=== PATIENT | male | born 1950 | race Caucasian/White ===

== ENCOUNTER 2020-10-20 11:14 | Inpatient (IN) | payer BC, OTHER ==
[~2020-10-20] VITALS: Ht 180.3 cm; Wt 63.7 kg
[~2020-10-20 11:14] MED LIST: HYDACE10B PO; HYDACE5 PO; METO50ER PO; NITR.4SL SL; ROSU10TA; RXHYDACE PO
[2020-10-20 12:14] LABS: BASOPHILS ABSOLUTE AUTO 0.02 K/mm3 (0.00-0.23); BASOPHILS PERCENT AUTO 0 % (0-2); EOSINOPHILS PERCENT AUTO 0 % (0-6); Hematocrit 54.8 % (37.0-53.0); IMMATURE GRAN ABSOLUTE AUTO 0.07 K/mm3 (0.00-0.10); IMMATURE GRAN PERCENT AUTO 0 % (0-1); LYMPHOCYTES PERCENT AUTO 6 % (21-46); MONOCYTES ABSOLUTE AUTO 1.63 K/mm3 (0.16-1.47); MONOCYTES PERCENT AUTO 10 % (4-13); Mean Corpuscular HGB 26.3 pg (26.0-34.0); Mean Corpuscular Volume 85 fL (80-100); Mean Platelet Volume 10.1 fL (9.1-12.4); NEUTROPHILS ABSOLUTE AUTO 14.31 K/mm3 (1.96-9.15); NEUTROPHILS PERCENT AUTO 84 % (41-73); Platelet Count 446 K/mm3 (150-400); RDW Coefficient Variation 13.2 % (11.7-14.2); RDW Standard Deviation 41.1 fL (35.1-46.3); Red Blood Cell Count 6.47 M/mm3 (4.30-5.90); White Blood Cell Count 17.13 K/mm3 (4.00-11.30)
[2020-10-20 12:27] LABS: Alanine Aminotransfer (ALT/SGP 294 U/L (12-78); Albumin, Blood 3.9 g/dL (3.4-5.0); Alk Phos 166 U/L (50-136); Anion Gap 7 mmol/L (6-16); Aspartate Aminotrans (AST/SGOT 114 U/L (12-37); Bilirubin, Total 0.8 mg/dL (0.1-1.0); Blood Urea Nitrogen 20 mg/dL (8-24); Bun/Creatinine Ratio 24.6 (12.0-20.0); CO2, Blood 27 mmol/L (21-32); Calcium, Blood 8.8 mg/dL (8.5-10.1); Chloride, Blood 104 mmol/L (98-108); Creatinine, Blood 0.81 mg/dL (0.60-1.20); Globulin, Blood 3.8 g/dL (2.2-4.0); Glomerular Filtration Rate >60 (60-); Glucose, Blood 162 mg/dL (70-99); Potassium, Blood 4.9 mmol/L (3.5-5.5); Sodium, Blood 138 mmol/L (136-145); Total Protein, Blood 7.7 g/dL (6.4-8.2); Troponin I <0.015 ng/mL (0.000-0.040)
--- NOTE | 2020-10-20 21:05 | NUR ---
PATIENT IS A NEW ADMIT FROM THE ED. ARRIVED VIA W/C. AXOX 4 AND SBA ASSIST TRANSFER TO BED. SOB WITH EXERTION ON ROOM AIR. NPO. PERSONAL BACK BRACE USED FOR SUPPORT TAKEN OFF ONCE IN BED. USED URINAL AT BEDSIDE. PATIENT ORIENTED TO ROOM AND CALL LIGHT SYSTEM. NO FAMILY PRESENT. WILL CONTINUE TO MONITOR.
--- NOTE | 2020-10-21 00:09 | NUR ---
GI CONSULT CALLED INTO DR GIOVANI CRUZ ANSWERING SERVICE ([email or web address]).
--- NOTE | 2020-10-21 04:12 | NUR ---
SHIFT SUMMARY PATIENT HAD NO ACUTE CHANGES OBSERVED. AXOX 4 AND SBA TO BR. NPO AND USES URINAL AT BEDSIDE. SOB WITH EXERTION, ON ROOM AIR. PIV REMAINS INTACT. IV ABX INFUSED. SOLU-MEDROL GIVEN PER EMAR. GI CONSULT CALLED INTO DR COSBY ANSWERING SERVICE. 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 DENIES PAIN AND N/V. COOPERATIVE WITH CARE. CALL LIGHT IN REACH. BED IN LOWEST POSITION. WILL CONTINUE TO MONITOR UNTIL DAY SHIFT NURSE ASSUMES CARE.
[2020-10-21 05:54] LABS: BASOPHILS ABSOLUTE AUTO 0.01 K/mm3 (0.00-0.23); BASOPHILS PERCENT AUTO 0 % (0-2); EOSINOPHILS PERCENT AUTO 0 % (0-6); Hematocrit 45.4 % (37.0-53.0); Hemoglobin 14.6 g/dL (13.5-17.5); IMMATURE GRAN ABSOLUTE AUTO 0.04 K/mm3 (0.00-0.10); IMMATURE GRAN PERCENT AUTO 0 % (0-1); LYMPHOCYTES ABSOLUTE AUTO 0.44 K/mm3 (0.84-5.20); LYMPHOCYTES PERCENT AUTO 4 % (21-46); MONOCYTES ABSOLUTE AUTO 0.07 K/mm3 (0.16-1.47); MONOCYTES PERCENT AUTO 1 % (4-13); Mean Corpuscular HGB 27.1 pg (26.0-34.0); Mean Corpuscular HGB Conc 32.2 g/dL (31.5-36.5); Mean Corpuscular Volume 84 fL (80-100); Mean Platelet Volume 9.7 fL (9.1-12.4); NEUTROPHILS ABSOLUTE AUTO 9.53 K/mm3 (1.96-9.15); NEUTROPHILS PERCENT AUTO 94 % (41-73); Platelet Count 316 K/mm3 (150-400); RDW Coefficient Variation 13.4 % (11.7-14.2); RDW Standard Deviation 41.2 fL (35.1-46.3); Red Blood Cell Count 5.38 M/mm3 (4.30-5.90); White Blood Cell Count 10.09 K/mm3 (4.00-11.30)
[2020-10-21 06:13] LABS: Alanine Aminotransfer (ALT/SGP 193 U/L (12-78); Albumin, Blood 3.3 g/dL (3.4-5.0); Alk Phos 127 U/L (50-136); Anion Gap 7 mmol/L (6-16); Aspartate Aminotrans (AST/SGOT 57 U/L (12-37); Bilirubin, Total 0.8 mg/dL (0.1-1.0); Blood Urea Nitrogen 17 mg/dL (8-24); Bun/Creatinine Ratio 27.2 (12.0-20.0); CO2, Blood 27 mmol/L (21-32); Calcium, Blood 7.9 mg/dL (8.5-10.1); Chloride, Blood 108 mmol/L (98-108); Creatinine, Blood 0.62 mg/dL (0.60-1.20); Globulin, Blood 3.3 g/dL (2.2-4.0); Glomerular Filtration Rate >60 (60-); Glucose, Blood 132 mg/dL (70-99); Potassium, Blood 4.3 mmol/L (3.5-5.5); Sodium, Blood 142 mmol/L (136-145); Total Protein, Blood 6.6 g/dL (6.4-8.2)
[2020-10-21 13:11] LABS: Influenza A, PCR NEGATIVE (NEGATIVE); Influenza B, PCR NEGATIVE (NEGATIVE); Resp Syncytial Virus, PCR NEGATIVE (NEGATIVE); SARS-Cov-2 (COVID-19) PCR, MMC NEGATIVE (NEGATIVE)
--- NOTE | 2020-10-21 16:32 | NUR ---
10/21/20 1632 Tommy Kelsey PATIENT DETERMINED TO BE ASA APPROPRIATE FOR PROPOFOL SEDATION PRIOR TO START OF PROCEDURE BY DR. MACK. Bite Block Placed. 3-LEAD EKG REVIEWED WITH PHYSICIAN PRIOR TO START OF PROCEDURE. Patient to ENDO 1 History, Chart, Medications and Allergies reviewed before start of procedure. MONITOR INTACT WITH CONTINUOUS PULSE OXIMETRY AND INTERMITTENT BP. O2 VIA N/C INTACT THROUGHOUT SEDATION/PROCEDURE.
--- NOTE | 2020-10-21 18:28 | NUR ---
SHIFT SUMMARY PT IS A&O AND ABLE TO MAKE NEEDS KNOWN. PT WENT TO DAY SURGERY, UPPER ENDOSCOPY WAS PREFORMED. PT IS ON ASPIRATION PRECAUTIONS UNTIL SPEECH CAN EVALUATE. PT IS RESTING IN BED, DENIES P,N,V AT THIS TIME. CALL LIGHT IS W/IN REACH. NO ACUTE CHANGES TO REPORT.
--- NOTE | 2020-10-22 03:16 | NUR ---
SHIFT SUMMARY PATIENT HAD NO ACUTE CHANGES OBSERVED. AXOX 4 AND INDEPENDENT IN ROOM WITH FWW. PIV REMAINS INTACT. IV ABX INFUSED. 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 ON ROOM AIR AND NPO. USES URINAL AT BEDSIDE. DENIES PAIN, SOB, AND N/V. VSS/AFEBRILE. COOPERATIVE WITH CARE. CALL LIGHT IN REACH. BED IN LOWEST POSITION. WILL CONTINUE TO MONITOR UNTIL DAY SHIFT NURSE ASSUMES CARE.
[2020-10-22 05:02] LABS: BASOPHILS ABSOLUTE AUTO 0.01 K/mm3 (0.00-0.23); BASOPHILS PERCENT AUTO 0 % (0-2); EOSINOPHILS PERCENT AUTO 0 % (0-6); Hemoglobin 14.7 g/dL (13.5-17.5); IMMATURE GRAN ABSOLUTE AUTO 0.03 K/mm3 (0.00-0.10); IMMATURE GRAN PERCENT AUTO 0 % (0-1); LYMPHOCYTES PERCENT AUTO 6 % (21-46); MONOCYTES PERCENT AUTO 12 % (4-13); Mean Corpuscular HGB 26.4 pg (26.0-34.0); Mean Corpuscular HGB Conc 31.3 g/dL (31.5-36.5); Mean Corpuscular Volume 85 fL (80-100); Mean Platelet Volume 9.5 fL (9.1-12.4); NEUTROPHILS ABSOLUTE AUTO 9.96 K/mm3 (1.96-9.15); NEUTROPHILS PERCENT AUTO 82 % (41-73); Platelet Count 321 K/mm3 (150-400); RDW Coefficient Variation 13.5 % (11.7-14.2); RDW Standard Deviation 42.1 fL (35.1-46.3); Red Blood Cell Count 5.56 M/mm3 (4.30-5.90)
[2020-10-22 05:23] LABS: Anion Gap 6 mmol/L (6-16); Blood Urea Nitrogen 21 mg/dL (8-24); Bun/Creatinine Ratio 31.3 (12.0-20.0); CO2, Blood 29 mmol/L (21-32); Chloride, Blood 112 mmol/L (98-108); Creatinine, Blood 0.67 mg/dL (0.60-1.20); Glomerular Filtration Rate >60 (60-); Glucose, Blood 98 mg/dL (70-99); Potassium, Blood 4.2 mmol/L (3.5-5.5); Sodium, Blood 147 mmol/L (136-145)
--- NOTE | 2020-10-22 18:12 | NUR ---
SHIFT SUMMARY PT ALERT AND ORIENTED. PT ABLE TO MAKE NEEDS KNOWN. PT HAD A MODIFIED BARIUM STUDY THIS MORNING. PT WILL CONTINUE TO BE NPO, STUDY SHOWED PT IS UNABLE TO CLEAR THIN OR THICKENED LIQUIDS. RECIEVED CALL FROM [facility] IN AFTERNOON, PT HAD RUNS OF BRADYCARDIA IN THE MID 40'S, PT WAS ASYMPTOMATIC. EVENING CHECK IN WITH [facility] REPORT SHOWED PT HAD RUNS OF BRADYCARDIA THREE TIMES THIS SHIFT ONCE IN THE MORNING, 1300'S AND JUST BEFORE 1500. SURGERY CONSULT CALLED IN TO DR TRUJILLO FOR PLACEMENT OF FEEDING TUBE. PT AND AGREABLE FOR SURGERY. CONSULT CALLED INTO ANSWERING SERVICE AT [address] TRUJILLO VISITED WITH PT TO REVIEW SURGERY AT 1725. SURGERY FOR PLACEMENT OF FEEDING TUBE SCHEDULED FOR 10/23/20. DR. TRUJILLO SAID TO HOLD TOMORROWS LOVENOX SHOT. RECEIVED CLINIMAX ORDER FOR PT, WILL START ONCE EVENING ANTIBIOTIC IS FINISHED. PT CURENTLY IN ROOM RESTING, CALL LIGHT W/IN REACH. WILL CONTINUE TO MONITOR UNTIL SHIFT CHANGE.
[2020-10-23 05:09] LABS: BASOPHILS ABSOLUTE AUTO 0.01 K/mm3 (0.00-0.23); BASOPHILS PERCENT AUTO 0 % (0-2); EOSINOPHILS PERCENT AUTO 0 % (0-6); Hematocrit 44.9 % (37.0-53.0); Hemoglobin 14.1 g/dL (13.5-17.5); IMMATURE GRAN ABSOLUTE AUTO 0.04 K/mm3 (0.00-0.10); IMMATURE GRAN PERCENT AUTO 1 % (0-1); LYMPHOCYTES ABSOLUTE AUTO 0.76 K/mm3 (0.84-5.20); LYMPHOCYTES PERCENT AUTO 9 % (21-46); MONOCYTES ABSOLUTE AUTO 0.94 K/mm3 (0.16-1.47); MONOCYTES PERCENT AUTO 11 % (4-13); Mean Corpuscular HGB 26.6 pg (26.0-34.0); Mean Corpuscular HGB Conc 31.4 g/dL (31.5-36.5); Mean Corpuscular Volume 85 fL (80-100); Mean Platelet Volume 9.6 fL (9.1-12.4); NEUTROPHILS ABSOLUTE AUTO 6.69 K/mm3 (1.96-9.15); NEUTROPHILS PERCENT AUTO 79 % (41-73); Platelet Count 290 K/mm3 (150-400); RDW Coefficient Variation 13.6 % (11.7-14.2); RDW Standard Deviation 42.5 fL (35.1-46.3); White Blood Cell Count 8.44 K/mm3 (4.00-11.30)
[2020-10-23 05:36] LABS: Alanine Aminotransfer (ALT/SGP 127 U/L (12-78); Albumin, Blood 3.2 g/dL (3.4-5.0); Albumin/Globulin Ratio 1.1 (0.8-1.8); Alk Phos 112 U/L (50-136); Anion Gap 4 mmol/L (6-16); Aspartate Aminotrans (AST/SGOT 50 U/L (12-37); Bilirubin, Total 0.9 mg/dL (0.1-1.0); Blood Urea Nitrogen 20 mg/dL (8-24); Bun/Creatinine Ratio 35.4 (12.0-20.0); CO2, Blood 27 mmol/L (21-32); Calcium, Blood 7.9 mg/dL (8.5-10.1); Chloride, Blood 110 mmol/L (98-108); Creatinine, Blood 0.57 mg/dL (0.60-1.20); Glomerular Filtration Rate >60 (60-); Glucose, Blood 110 mg/dL (70-99); Potassium, Blood 3.9 mmol/L (3.5-5.5); Sodium, Blood 141 mmol/L (136-145); Total Protein, Blood 6.2 g/dL (6.4-8.2)
--- NOTE | 2020-10-23 06:15 | NUR ---
PT IS A/O PLEASANT, NPO AT THIS TIME, PENDING PEG TUBE PLACEMENT WITH DR POSADAS TODAY. LOVENOX HELD THIS SHIFT. PT SUCTIONS SELF, CLINIX RUNNING AT THIS TIME. TELE MONITOR HAS OCCASIONS OF BRADYCARDIA AT TIMES.
[2020-10-23 08:09] LABS: HBSAG SCREEN Negative (Negative); HEP B CORE AB, TOT Negative (Negative); HEP C VIRUS AB <0.1 (0.0-0.9)
[2020-10-23 09:09] LABS: HBSAG SCREEN Negative (Negative); HEP A AB, IGM Negative (Negative); HEP B CORE AB, IGM Negative (Negative); HEP C VIRUS AB <0.1 (0.0-0.9)
--- NOTE | 2020-10-23 13:21 | NUR ---
10/23/20 1321 Jose Lawrence History, Chart, Medications and Allergies reviewed before start of procedure.MONITOR INTACT WITH CONTINUOUS PULSE OXIMETRY AND INTERMITTENT BP. 3-LEAD EKG REVIEWED WITH PHYSICIAN PRIOR TO START OF PROCEDURE. O2 VIA N/C INTACT THROUGHOUT SEDATION/PROCEDURE. Bite Block Placed. See Anesthesia record.
--- NOTE | 2020-10-23 13:33 | NUR ---
PT TRANSFERED TO [facility] FROM FLOOR VIA GURNY. Surgical site prepped with 2% Chlorhexidine cloth wipe. History, Chart, Medications and Allergies reviewed before start of procedure. Lungs clear T/O to Auscultation. Patient confirms NPO status and agrees with scheduled surgery. Pre-Op teaching done. Pt verbalizes understanding.
--- NOTE | 2020-10-23 18:39 | NUR ---
SHIFT SUMMARY MARLEE DENIED PAIN THIS SHIFT. STRICT NPO. HAD PEG PLACED, VSS POST PROCEDURE. SBA TO BR. DRESSING AROUND PEG C/D/I. DAUGHTER VISITED. HR DOWN TO 40S AND UP TO 90S, LABILE. PT ASYMPTOMATIC. DR ALCANTAR AWARE. CALL LIGHT IN REACH, [facility]
[2020-10-24 05:24] LABS: BASOPHILS ABSOLUTE AUTO 0.01 K/mm3 (0.00-0.23); BASOPHILS PERCENT AUTO 0 % (0-2); EOSINOPHILS PERCENT AUTO 0 % (0-6); Hematocrit 45.2 % (37.0-53.0); Hemoglobin 14.5 g/dL (13.5-17.5); IMMATURE GRAN ABSOLUTE AUTO 0.03 K/mm3 (0.00-0.10); IMMATURE GRAN PERCENT AUTO 0 % (0-1); LYMPHOCYTES ABSOLUTE AUTO 0.64 K/mm3 (0.84-5.20); LYMPHOCYTES PERCENT AUTO 8 % (21-46); MONOCYTES ABSOLUTE AUTO 0.82 K/mm3 (0.16-1.47); MONOCYTES PERCENT AUTO 10 % (4-13); Mean Corpuscular HGB 27.2 pg (26.0-34.0); Mean Corpuscular HGB Conc 32.1 g/dL (31.5-36.5); Mean Corpuscular Volume 85 fL (80-100); Mean Platelet Volume 9.6 fL (9.1-12.4); NEUTROPHILS ABSOLUTE AUTO 6.64 K/mm3 (1.96-9.15); NEUTROPHILS PERCENT AUTO 82 % (41-73); Platelet Count 237 K/mm3 (150-400); RDW Coefficient Variation 13.5 % (11.7-14.2); RDW Standard Deviation 41.8 fL (35.1-46.3); Red Blood Cell Count 5.33 M/mm3 (4.30-5.90); White Blood Cell Count 8.14 K/mm3 (4.00-11.30)
--- NOTE | 2020-10-24 05:49 | NUR ---
PT IS A/O, USES RESTROOM, NPO DUE TO INABILITY TO SWALLOW. PEG TUBE PLACED YESTERDAY AFTERNOON, SITE DRESSING CDI. TELE MONITOR HAS OCCASIONAL BRADYCARDIC EPISODES.
[2020-10-24 06:03] LABS: Anion Gap 6 mmol/L (6-16); Blood Urea Nitrogen 17 mg/dL (8-24); Bun/Creatinine Ratio 32.5 (12.0-20.0); CO2, Blood 24 mmol/L (21-32); Chloride, Blood 110 mmol/L (98-108); Creatinine, Blood 0.52 mg/dL (0.60-1.20); Glomerular Filtration Rate >60 (60-); Glucose, Blood 105 mg/dL (70-99); Magnesium, Blood 2.5 mg/dL (1.6-2.4); Phosphorus, Blood 1.5 mg/dL (2.5-4.9); Potassium, Blood 3.9 mmol/L (3.5-5.5); Sodium, Blood 140 mmol/L (136-145)
--- NOTE | 2020-10-24 18:40 | NUR ---
SHIFT SUMMARY MARLEE DENIED PAIN THIS SHIFT. UP TO CHAIR AND BR WITH SBA DUE TO LINES. TOLERATED TUBE FEED WELL, FIRST 8 HOURS OF SHIFT HE WAS AT 25ML/HR TF, ADVANCED TO 40ML/HR AT 4PM, RESIDUALS ONLY AT 20CC, NO NAUSEA/DISTENSION. PEG TUBE C/D/I. CONTINENT IN URINAL. CALL LIGHT IN REACH, WCTM
--- NOTE | 2020-10-24 21:20 | NUR ---
CLINIMIX COMPLETED W/IV SL. Q4H SCHEDULED WATER FLUSHES COMMENCED VIA PEG TUBE PER ORDERS AND RN REPORT INSTRUCTIONS. RESIDUAL WAS 25 MLS AND PT TOLERATING CONTINUOUS TUBE FEEDS AT THIS TIME. RATE DUE TO BE INCREASED AT 0000.
--- NOTE | 2020-10-24 22:43 | NUR ---
CLINIMIX COMPLETED W/IV SL. Q4H SCHEDULED WATER FLUSHES COMMENCED VIA PEG TUBE PER ORDERS AND RN REPORT INSTRUCTIONS. RESIDUAL WAS 25 MLS AT PT TOLERATING CONTINUOUS TUBE FEEDS AT THIS TIME. RATE DUE TO BE INCREASED AT 0000.
[2020-10-25 05:06] LABS: BASOPHILS ABSOLUTE AUTO 0.01 K/mm3 (0.00-0.23); BASOPHILS PERCENT AUTO 0 % (0-2); EOSINOPHILS PERCENT AUTO 0 % (0-6); Hematocrit 46.4 % (37.0-53.0); Hemoglobin 14.8 g/dL (13.5-17.5); IMMATURE GRAN ABSOLUTE AUTO 0.05 K/mm3 (0.00-0.10); IMMATURE GRAN PERCENT AUTO 1 % (0-1); LYMPHOCYTES ABSOLUTE AUTO 0.72 K/mm3 (0.84-5.20); LYMPHOCYTES PERCENT AUTO 8 % (21-46); MONOCYTES ABSOLUTE AUTO 0.96 K/mm3 (0.16-1.47); MONOCYTES PERCENT AUTO 10 % (4-13); Mean Corpuscular HGB 26.8 pg (26.0-34.0); Mean Corpuscular HGB Conc 31.9 g/dL (31.5-36.5); Mean Corpuscular Volume 84 fL (80-100); NEUTROPHILS ABSOLUTE AUTO 7.59 K/mm3 (1.96-9.15); NEUTROPHILS PERCENT AUTO 81 % (41-73); Platelet Count 242 K/mm3 (150-400); RDW Coefficient Variation 13.5 % (11.7-14.2); RDW Standard Deviation 41.4 fL (35.1-46.3); Red Blood Cell Count 5.53 M/mm3 (4.30-5.90); White Blood Cell Count 9.33 K/mm3 (4.00-11.30)
--- NOTE | 2020-10-25 05:30 | NUR ---
SUMMARY: A/OX4, SPECIFIES NEEDS AND IS SBA OOB. HE RARELY CALLS FOR ASSIST BUT HAS DENIED NEEDS OUTSIDE OF POSITIONAL BACK PAIN THAT WAS RELIEVED W/TURNING AND FENTANYL 25MCG IV PRN. HE REMAINS NPO FOR ASPIRATION PNM W/IV ABX RECIEVED T/O NOCTE. CLINIMIX BAG COMPLETED AND WAS SL PER ORDERS. PEG TUBE WAS RECENTLY PLACED AND PT HAS TOLERATED CONT.FEEDS WELL. RATE INCREASED TO GOAL OF 55 ML/HR AND Q4H WATER FLUSHES STARTED UPON D/C OF CLINIMIX, MINIMAL RESIDUALS NOTED OF APPROX 10-30 MLS. BT'S (+) X4 QUADS AND PT DENIED NAUSEA AND ABDO DISTENSION/PRESSURE. BOLUS FEEDINGS PLANNED TO START THIS AM. PT USED URINAL IN BED AND CONT'S W/O DOCUMENTED BM SINCE 10/18/20. BOWEL MEDS RX'D AND WILL BE COMMENCED ON DAY SHIFT. NO ACUTE CHANGES, VSS/AFEBRILE. WCTM/REPORT TO DAY RN.
[2020-10-25 05:36] LABS: Anion Gap 3 mmol/L (6-16); Blood Urea Nitrogen 18 mg/dL (8-24); CO2, Blood 28 mmol/L (21-32); Calcium, Blood 9.1 mg/dL (8.5-10.1); Chloride, Blood 108 mmol/L (98-108); Glomerular Filtration Rate >60 (60-); Glucose, Blood 123 mg/dL (70-99); Magnesium, Blood 2.1 mg/dL (1.6-2.4); Phosphorus, Blood 2.9 mg/dL (2.5-4.9); Potassium, Blood 3.7 mmol/L (3.5-5.5); Sodium, Blood 139 mmol/L (136-145)
[2020-10-25] MEDS ORDERED: DOCU100 PT (13:59)
[2020-10-25] MEDS ORDERED: SENN187 PO (13:59)
--- NOTE | 2020-10-25 18:05 | NUR ---
DISCHARGE SUMMARY PT A&Ox4. PLEASANT AND COOPERATIVE WITH CARE. PT DISCHARGING HOME TODAY WITH . PT TRANSITIONED TO BOLUS PEG TUBE FEEDS TODAY. PATIENT EDUCATION PROVIDED ON PEG FEEDS. PT HAD SHOWER TODAY. INCONTINENT OF BOWEL X1 TODAY. PT DENIES PAIN OR ABDOMINAL DISCOMFORT. DISCHARGE INSTRUCTIONS DISCUSSED WITH PATIENT AND INCLUDING, FOLLOW UP APPOINTMENTS, DC MEDS, HOME HEALTH, PEG FEEDING INSTRUCTIONS/ORDERS. PT AND VERBALIZE UNDERSTANDING. DENIES ANY FURTHER QUESTIONS AT THIS TIME. VITALS REVIEWED. PT ESCORTED OUT SAFELY VIA WC WITH OPERATIONAL REVIEW SERGEANT AND .
== END 2020-10-25 18:07 | disposition home health service (06) | DRG 871 ==
LOC: ER 11:14 → MEDS 17:51 → ENPENDDIS 10-25 16:07 → MEDS 10-25 18:07
PROVIDERS: Family Medicine; Physician Assistant; Student in an Organized Health Care Education/Training Program; Surgery; ADMIT Internal Medicine
DX: A41.9 Sepsis, unspecified organism (principal); J69.0 Pneumonitis due to inhalation of food and vomit; C79.51 Secondary malignant neoplasm of bone; C64.9 Malignant neoplasm of unspecified kidney, except renal pelvis; E87.0 Hyperosmolality and hypernatremia; Z20.822 Contact with and (suspected) exposure to COVID-19; R65.20 Severe sepsis without septic shock; F17.210 Nicotine dependence, cigarettes, uncomplicated; R13.12 Dysphagia, oropharyngeal phase; I10 Essential (primary) hypertension
CPT/HCPCS: 0241U; 36415; 70491; 71046; 71260; 74230; 76705; 80048; 80053; 80074; 83605; 83735; 83880; 84100; 84484; 85025; 86317; 86704; 86708; 86803; 87040; 87340; 92526; 92611; 93005; 93010; 96365; 99285-25; A9270; C1769; J0295; J1650; J2543; J2704; J2930; J3010; J7030; J7042; J7050; J7120; Q9967